=== PATIENT | female | born 1990 | race Caucasian/White ===

== ENCOUNTER 2022-05-23 12:49 | Outpatient (CLI) | payer SELFPAY ==
[2022-05-23 13:54] LABS: Appearance,Urine Clear (Clear); Bacteria,Urine Occasional /hpf; Bilirubin,Urine Negative (Negative); Blood,Urine Negative (Negative); Color,Urine Yellow; Glucose,Urine (UA) Negative (Negative); Ketones,Urine Trace (Negative); Leukocyte Esterase,Urine Small (Negative); Mucus,Urine Occasional /hpf; Nitrite,Urine Negative (Negative); Protein,Urine Negative (Negative); RBC,Urine 1 /hpf (0-5); Specific Gravity,Urine 1.019 (1.001-1.035); Squamous Epithelial Cell,Urine 3 /hpf (0-4); Urobilinogen,Urine <2.0 mg/dL (<2.0); WBC,Urine 1 /hpf (0-5)
[2022-05-23 13:56] VITALS: BP 115/56; PULSE 82; RESP 16; TEMP 97.3
--- NOTE | 2022-05-31 07:45 | P.MSEPDOC ---
Presenting Problems - Arrival Data Date of Arrival on Unit: 05/23/22 Time of Arrival on Unit: 13:00 Mode of Transport: Ambulatory - Complaint OB-Reason for Admission/Chief Complaint: Other Comment: spotting last night. bilateral ligament pain and low back discomfort today Medical History - Information : 3 Para: 2 Term: 2 : 0 Abortions: Spontaneous or Elective: 0 Number of Living Children: 0 - Gestational Age Gestational Age by LRO (wks/days): 26 Weeks and 2 Days Review of Systems - Review of Systems Constitutional: No problems Breast: No problems ENT: No problems Cardiovascular: No problems Respiratory: No problems Gastrointestinal: No problems Genitourinary: No problems Musculoskeletal: No problems Neurological: No problems Skin: No problems Vital Signs - Temperature Temperature: 97.3 F Temperature Source: Temporal Artery Scan - Pulse Right Radial Pulse Rate: 82 Pulse Assessment Method: Automatic Cuff - Respirations Respiratory Rate: 16 Oxygen Delivery Method: Room Air O2 Sat by Pulse Oximetry: 100 - Blood Pressure Right Arm Blood Pressure: 115/56 Blood Pressure Mean: 75 Blood Pressure Source: Automatic Cuff Medical Screen Scoring - Cervical Exam Membranes: Intact - Assessment - Baby A Baseline FHR: 130 Heart Rate - NICHD Category: Category I (Normal) Physician Notification - Physician Notified Physician Notified Date: 05/23/22 Physician Notified Time: 14:00 Physician: James Nair New Order Received: Yes - Notification Comment Comment: may discharge home with instructions. followup with Dr Rick at scheduled appt Maternal Triage Index - Maternal Triage Index Presenting for scheduled procedure w/no complaint: Yes - Scheduled/Requesting Priority 5 Scheduled/Requesting Priority 5: Yes Criteria Met for Priority 5: fht's 130's. feeling baby move. denies spotting now. u/a neg for infection. sve= closed thick high. no bleeding noted. whitish discharge with exam Disposition - Disposition OB Disposition: Discharge to home, Written follow up instructions reviewed Discharge Date: 05/23/22 Discharge Time: 14:20 I agree with the RN Medical Screening Exam: Yes Case reviewed; plan agreed upon as documented in EMR&OBIX.: Yes Diagnosis: RELATED CONDITIONS, UNSPECIFIED, SECOND TRIMESTER
== END 2022-05-23 14:10 | disposition home or self-care (01) ==
LOC: FBPOP 12:49
PROVIDERS: ATTEND Obstetrics & Gynecology
DX: O26.892 Other specified pregnancy related conditions, second trimester (principal); Z3A.26 26 weeks gestation of pregnancy; M54.50 Low back pain, unspecified
CPT/HCPCS: 81001; 99213

== ENCOUNTER 2022-07-13 16:52 | Outpatient (CLI) | payer BC | END 2022-07-13 17:40 | disposition home or self-care (01) | LOC: FBPOP 16:52 | PROVIDERS: ATTEND Obstetrics & Gynecology | DX: O26.893 Other specified pregnancy related conditions, third trimester (principal); Z3A.37 37 weeks gestation of pregnancy | CPT/HCPCS: 59025 ==

== ENCOUNTER 2022-08-16 06:00 | Inpatient (IN) | payer BC ==
[2022-08-16] MEDS ORDERED: METHYLERGONOVINE 0.2 MG/ML 1 ML AMP IM PRN (06:27)
[2022-08-16] MEDS ORDERED: TERBUTALINE 1 MG/ML VIAL SQ PRN (06:27)
[2022-08-16] MEDS ORDERED: CARBOPROST TROMETHAMINE 250 MCG/ML 1 ML AMP IM PRN (06:27)
[2022-08-16] MEDS ORDERED: LIDOCAINE 0.5% (PF) 5 MG/ML (50 ML SDV) SQ PRN (06:27)
[2022-08-16] MEDS ORDERED: OXYTOCIN 10 UNIT/ML 1 ML VIAL IM PRN (06:27)
[2022-08-16] MEDS ORDERED: TRANEXAMIC ACID IN NACL,ISO-OS 1,000 MG in EMPTY BAG 1 BAG IV PRN (06:27)
[2022-08-16] MEDS ORDERED: miSOPROStoL 200 MCG TAB PO PRN (06:27)
[2022-08-16] MEDS ORDERED: LACTATED RINGERS 1,000 ML IV SCH (06:30)
[2022-08-16 06:34] LABS: Glucose,Whole Blood 99 mg/dL (70-110)
[2022-08-16] MEDS ORDERED: OXYTOCIN 30 UNITS/500 ML NS 30 UNIT in SALINE 1 500ML.BAG IV SCH ×2 (06:45→13:15)
[2022-08-16 06:46] LABS: Basophils % (A) 0 %; Eosinophils # (A) 0.2 k/uL (0-0.7); Eosinophils % (A) 2 %; HCT 33.7 % (34.0-46.0); Lymphocytes # (A) 1.5 k/uL (1.0-4.8); Lymphocytes % (A) 13 %; MCH 27.7 pg (25.0-35.0); MCHC 32.5 g/dL (31.0-37.0); Mean Platelet Volume 7.5; Monocytes # (A) 0.6 k/uL (0-1.0); Monocytes % (A) 5 %; Neutrophils # (A) 9.3 k/uL (1.3-7.7); Neutrophils % (A) 79 %; Platelet Count 354 k/uL (150-450); RBC 3.96 m/uL (3.80-5.40); WBC 11.8 k/uL (3.8-10.6)
--- NOTE | 2022-08-16 07:31 | P.HPOB ---
History of Present Illness H&P Date: 08/16/22 Chief Complaint: uncontrolled gestational diabetes 32 year old presents at 38 weeks 3 days for induction of labor. Pt has been treated and surveyed for Gestational Diabetes. Today her fasting sugar is 99 which fits with how I believe her sugars have been trending. Her cervix is 4/70/-2 and she is fabby irregularly. heart tones 135 with moderate variability and reactive. Review of Systems All systems: negative Constitutional: Denies chills, Denies fever Eyes: denies blurred vision, denies pain Ears, nose, mouth and throat: Denies headache, Denies sore throat Cardiovascular: Denies chest pain, Denies shortness of breath Respiratory: Denies cough Gastrointestinal: Denies abdominal pain, Denies diarrhea, Denies nausea, Denies vomiting Genitourinary: Denies dysuria, Denies hematuria Musculoskeletal: Denies myalgias Integumentary: Denies pruritus, Denies rash Neurological: Denies numbness, Denies weakness Psychiatric: Denies anxiety, Denies depression Endocrine: Denies fatigue, Denies weight change Past Medical History Additional Past Medical History / Comment(s): GDM History of Any Multi-Drug Resistant Organisms: None Reported Past Surgical History: No Surgical Hx Reported Past Anesthesia/Blood Transfusion Reactions: No Reported Reaction Past Psychological History: Anxiety Additional Psychological History / Comment(s): medication prior to Smoking Status: Vaper Past Drug Use History: None Reported Medications and Allergies Home Medications Medication Instructions Recorded Confirmed Type No Known Home Medications 08/16/22 08/16/22 History Allergies Allergy/AdvReac Type Severity Reaction Status Date / Time No Known Allergies Allergy Verified 08/16/22 06:27 Exam Osteopathic Statement: *. No significant issues noted on an osteopathic struct ural exam other than those noted in the History and Physical/Consult. Vital Signs Temp Pulse Resp BP Pulse Ox 08/16/22 06:26 96.8 F L 86 16 144/78 99 Intake and Output 08/15/22 08/16/22 08/16/22 22:59 06:59 14:59 Other: Weight 107.048 kg Heart: Regular rate and rhythm Lungs: Clear to auscultation bilaterally Abdomen: Soft, nontender Extremities: Negative Homans sign Results Result Diagrams: 08/16/22 06:31 Abnormal Lab Results - Last 24 Hours (Table) 08/16/22 Range/Units 06:31 WBC 11.8 H (3.8-10.6) k/uL Hgb 11.0 L (11.4-16.0) gm/dL Hct 33.7 L (34.0-46.0) % Neutrophils # 9.3 H (1.3-7.7) k/uL Assessment and Plan (1) Gestational diabetes mellitus Current Visit: Yes Status: Acute Code(s): O24.419 - GESTATIONAL DIABETES MELLITUS IN , UNSP CONTROL SNOMED Code(s): 81340190 (2) 38 weeks gestation of Narrative/Plan: with advanced cervical dilation Current Visit: Yes Status: Acute Code(s): Z3A.38 - 38 WEEKS GESTATION OF SNOMED Code(s): 28316120 Plan: 1. induction of labor with amniotomy and pitocin 2. anticipate normal vaginal delivery
[2022-08-16 08:29] LABS: Glucose,Whole Blood 96 mg/dL (70-110)
[2022-08-16] MEDS ORDERED: HYDROmorphone 1 MG/ML 1 ML SYRINGE IVP STA (09:13)
[2022-08-16 09:30] LABS: Glucose,Whole Blood 96 mg/dL (70-110)
[2022-08-16 10:31] LABS: Glucose,Whole Blood 98 mg/dL (70-110)
[2022-08-16] MEDS ORDERED: ACETAMINOPHEN TAB 325 MG TAB PO PRN (13:08)
[2022-08-16] MEDS ORDERED: ZOLPIDEM 5 MG TAB PO PRN (13:08)
[2022-08-16] MEDS ORDERED: BENZOCAINE/MENTHOL SPRAY 1 GM/SPRAY AEROSOL TOPICAL PRN (13:08)
[2022-08-16] MEDS ORDERED: diphenhydrAMINE 50 MG/ML 1 ML VIAL IVP PRN ×2 (13:08)
[2022-08-16] MEDS ORDERED: HYDROCORTISONE 2.5% RECTAL CREAM 30 GM TUBE RECTAL PRN (13:08)
[2022-08-16] MEDS ORDERED: IBUPROFEN 600 MG TAB PO PRN (13:08)
[2022-08-16] MEDS ORDERED: SIMETHICONE 80 MG CHEWABLE PO PRN (13:08)
[2022-08-16] MEDS ORDERED: diphenhydrAMINE 25 MG CAP PO PRN (13:08)
[2022-08-16] MEDS ORDERED: LANOLIN CREAM 5 GM TUBE TOPICAL PRN (13:08)
[2022-08-16] MEDS ORDERED: diphenhydrAMINE 50 MG CAP PO PRN (13:08)
--- NOTE | 2022-08-16 13:08 | P.PROBDLV ---
Vaginal Delivery Note - . Vaginal Delivery Note: 32 year old presents at 38 weeks 3 days for induction of labor. Pt has been treated and surveyed for Gestational Diabetes. Today her fasting sugar is 99 which fits with how I believe her sugars have been trending. Her cervix is 4/70/-2 and she is fabby irregularly. heart tones 135 with moderate variability and reactive. Pitocin augmentation was started. Amniotomy performed at 6:54 AM and clear fluid noted. Her cervix was completely dilated by about 1050. She pushed, delivered viable male over intact perineum at 11:01 AM. Head delivered OA, anterior shoulder delivered gentle downward guidance followed by posterior shoulder and rest of body. Nose and mouth bulb suctioned, cord clamped and cut, placed on mother's abdomen. Apgars 7, 9, weight 9 lbs. 2 oz. Placenta delivered spontaneous, intact with three-vessel cord at 11:03 AM. Vagina, cervix, perineum inspected. Second-degree midline laceration was repaired with 3-0 Vicryl. Estimated blood loss 100 mL. Mother and baby in stable condition.
[2022-08-16] MEDS: SENNOSIDES-DOCUSATE SODIUM 1 EACH TAB PO SCH (20:53)
[2022-08-16 23:49] VITALS: RESP 18
[2022-08-17 07:16] LABS: Basophils % (A) 0 %; Eosinophils # (A) 0.2 k/uL (0-0.7); Eosinophils % (A) 2 %; HCT 27.5 % (34.0-46.0); Lymphocytes # (A) 1.6 k/uL (1.0-4.8); Lymphocytes % (A) 12 %; MCH 27.1 pg (25.0-35.0); MCHC 32.6 g/dL (31.0-37.0); Mean Platelet Volume 7.3; Monocytes # (A) 0.6 k/uL (0-1.0); Monocytes % (A) 5 %; Neutrophils # (A) 10.6 k/uL (1.3-7.7); Neutrophils % (A) 80 %; Platelet Count 301 k/uL (150-450); RBC 3.31 m/uL (3.80-5.40); RDW 14.3 % (11.5-15.5); WBC 13.3 k/uL (3.8-10.6)
--- NOTE | 2022-08-17 07:30 | P.DS ---
Providers Date of admission: 08/16/22 06:16 Expected date of discharge: 08/17/22 Attending physician: Ludivina Rick Primary care physician: Stated None - Discharge Diagnosis(es) (1) Gestational diabetes mellitus Current Visit: Yes Status: Resolved (2) 38 weeks gestation of Current Visit: Yes Status: Resolved (3) Normal vaginal delivery Current Visit: Yes Status: Acute Hospital Course: She presented for induction of labor due to uncontrolled diabetes. She underwent a normal vaginal delivery without complication. She denies nausea, vomiting, chest pain, shortness of her calf pain. Her lochia is decreasing. Patient will be discharged home day #1 in stable condition to follow- up with me in 6 weeks. Plan - Discharge Summary New Discharge Prescriptions: New Ibuprofen [Motrin] 600 mg PO Q6HR PRN #30 tab PRN Reason: Mild Pain (Scale 1 To 3) Discharge Medication List Ibuprofen [Motrin] 600 mg PO Q6HR PRN #30 tab 08/17/22 [Rx] Follow up Appointment(s)/Referral(s): Ludivina Rick DO [Doctor of Osteopathic Medicine] - 10/03/22 3:45 pm Discharge Disposition: HOME SELF-CARE
[2022-08-17 10:10] VITALS: BP 128/87; PULSE 104; TEMP 98.3
[2022-08-17] MEDS: SENNOSIDES-DOCUSATE SODIUM 1 EACH TAB PO SCH (10:53)
== END 2022-08-17 11:58 | disposition home or self-care (01) | DRG 807 ==
LOC: 4FBP 06:16
PROVIDERS: ADMIT Obstetrics & Gynecology; ATTEND Obstetrics & Gynecology
PROC: 10E0XZZ Delivery of Products of Conception, External Approach (ICD-10-PCS; principal; 2022-08-16)
PROC: 0KQM0ZZ Repair Perineum Muscle, Open Approach (ICD-10-PCS; 2022-08-16)
PROC: 10907ZC Drainage of Amniotic Fluid, Therapeutic from Products of Conception, Via Natural or Artificial Opening (ICD-10-PCS; 2022-08-16)
PROC: 3E033VJ Introduction of Other Hormone into Peripheral Vein, Percutaneous Approach (ICD-10-PCS; 2022-08-16)
DX: O24.429 Gestational diabetes mellitus in childbirth, unspecified control (principal); Z37.0 Single live birth; O99.334 Smoking (tobacco) complicating childbirth; F17.290 Nicotine dependence, other tobacco product, uncomplicated; O70.1 Second degree perineal laceration during delivery; Z3A.38 38 weeks gestation of pregnancy; O99.344 Other mental disorders complicating childbirth; F41.9 Anxiety disorder, unspecified
CPT/HCPCS: 85025; 86850; 86900; 86901